=== PATIENT | male | born 1995 | race African-American/Black ===

== ENCOUNTER 2016-10-08 22:54 | Emergency (ER) | payer SELFPAY ==
[2016-10-08] MEDS ORDERED: HYDROcodone/Acetaminophen 10/325 mg Tablet ONE (23:42)
== END 2016-10-09 00:12 | disposition home or self-care (01) ==
LOC: NAV ERS 22:54
DX: K40.90 Unilateral inguinal hernia, without obstruction or gangrene, not specified as recurrent (principal); F17.210 Nicotine dependence, cigarettes, uncomplicated
CPT/HCPCS: 99283